=== PATIENT | male | born 1985 | race American Indian/Alaskan Native ===

== ENCOUNTER 2020-08-20 18:34 | Emergency (ER) | payer SELFPAY ==
--- NOTE | 2020-08-20 20:36 | Emergency Department Report ---
Blank Doc - Documentation Documentation: 34-year-old male that presents with anxiety and paranoid. Denies any SI/HI. This initial assessment/diagnostic orders/clinical plan/treatment(s) is/are subject to change based on patient's health status, clinical progression and re- assessment by fellow clinical providers in the ED. Further treatment and workup at subsequent clinical providers discretion. Patient/guardians urged not to elope from the ED as their condition may be serious if not clinically assessed and managed. Initial orders include: 1- Patient sent to MAIN ED for further evaluation and treatment 2- soft water mechanic was notified to have patient be brought back [facility]. 3- RN was notified to keep patient as close range and observation until room available
[2020-08-20 21:24] LABS: BUN/Creatinine Ratio 12; Blood Urea Nitrogen 11 mg/dL (9-20); Calcium 9.7 mg/dL (8.4-10.2); Hemolysis Index 9
[2020-08-20 21:31] LABS: Basophils % (Auto) 0.7 % (0.0-1.8); Eosinophils % (Auto) 0.6 % (0.0-4.3); Lymphocytes # (Auto) 0.9 K/mm3 (1.2-5.4); Lymphocytes % (Auto) 12.2 % (13.4-35.0); Mean Corpuscular HGB Conc 35 % (32-34); Mean Corpuscular Volume 98 fl (84-94); Monocytes # (Auto) 0.7 K/mm3 (0.0-0.8); Monocytes % (Auto) 9.5 % (0.0-7.3); Platelet Count 244 K/mm3 (140-440); Red Blood Count 4.39 M/mm3 (3.65-5.03); Red Cell Distribution Width 14.9 % (13.2-15.2)
[2020-08-20 21:58] LABS: Bilirubin,Urine NEG (Negative); Blood,Urine NEG (Negative); Color,Urine Yellow (Yellow); Mucus,Urine 1+ /HPF; Urobilinogen,Urine < 2.0 mg/dL (<2.0); WBC,Urine < 1.0 /HPF (0.0-6.0)
[2020-08-20 22:06] LABS: Amphetamine Screen,Urine PRESUMPTIVE POSITIVE; Benzodiazepines Screen,Urine PRESUMPTIVE NEGATIVE; Cannabinoid Screen,Urine PRESUMPTIVE POSITIVE; Cocaine Screen,Urine PRESUMPTIVE NEGATIVE; Methadone Screen,Urine PRESUMPTIVE NEGATIVE; Opiate Screen,Urine PRESUMPTIVE NEGATIVE
--- NOTE | 2020-08-21 02:40 | Emergency Department Report ---
<AMARJIT COEAlton - Last Filed: 08/21/20 22:33> ED Psych HPI - General Chief Complaint: Psych Stated Complaint: ANXIETY ATTACK Time Seen by Provider: 08/20/20 20:35 Source: patient Mode of arrival: Ambulatory - History of Present Illness Initial Comments: Patient is 34 years old male with no significant past medical history. No previous record to review. Patient presented to the ER stating that people are going after him to kill him. Patient denied any suicidal or homicidal ideation. No visual or auditory hallucination. Patient is very paranoid. MD Complaint: altered mental status Associated Psychiatric Symptoms: racing thoughts - Related Data Allergies Allergy/AdvReac Type Severity Reaction Status Date / Time No Known Allergies Allergy Unverified 08/20/20 20:53 ED Review of Systems Comment: All other systems reviewed and negative Constitutional: denies: chills, fever Respiratory: denies: cough, shortness of breath, SOB with exertion, wheezing Cardiovascular: denies: chest pain Gastrointestinal: denies: abdominal pain, nausea Musculoskeletal: denies: back pain Psychiatric: anxiety. denies: auditory hallucinations, visual hallucinations, h omicidal thoughts, suicidal thoughts ED Past Medical Hx - Past Medical History Previous Medical History?: Yes Additional medical history: hyperventilation - Surgical History Past Surgical History?: Yes Additional Surgical History: R arm - Social History Smoking Status: Current Some Day Smoker Substance Use Type: Alcohol ED Physical Exam - General Limitations: No Limitations General appearance: alert, in no apparent distress, anxious - Head Head exam: Present: atraumatic, normocephalic, normal inspection - Eye Eye exam: Present: normal appearance - ENT ENT exam: Present: normal exam, normal orophraynx, mucous membranes moist - Neck Neck exam: Present: normal inspection, full ROM. Absent: tenderness, meningismus, lymphadenopathy, thyromegaly - Respiratory Respiratory exam: Present: normal lung sounds bilaterally - Cardiovascular Cardiovascular Exam: Present: regular rate, normal rhythm, normal heart sounds - GI/Abdominal GI/Abdominal exam: Present: soft, normal bowel sounds. Absent: distended, tenderness, guarding, rebound, rigid, organomegaly, mass, bruit, pulsatile mass, hernia - Extremities Exam Extremities exam: Present: normal inspection, full ROM, normal capillary refill - Back Exam Back exam: Present: normal inspection, full ROM. Absent: CVA tenderness (R), CVA tenderness (L) - Neurological Exam Neurological exam: Present: alert, oriented X3, CN II-XII intact - Psychiatric Psychiatric exam: Present: normal mood - Skin Skin exam: Present: warm, intact, normal color ED Medical Decision Making - Lab Data Result diagrams: 08/20/20 20:52 08/20/20 20:52 ED Disposition Clinical Impression: Acute psychosis Condition: Stable Referrals: PRIMARY CARE, [Primary Care Provider] - 3-5 Days <BASIM ALVARENGA - Last Filed: 08/22/20 20:00> ED Review of Systems ROS: Stated complaint: ANXIETY ATTACK Other details as noted in HPI ED Course Vital Signs 08/20/20 08/21/20 08/21/20 20:52 02:11 08:30 Temperature 98.0 F 97.8 F 97.5 F L Pulse Rate 89 52 L 50 L Respiratory 20 16 19 Rate Blood Pressure Blood Pressure 148/95 106/80 106/73 [Right] O2 Sat by Pulse 100 100 99 Oximetry 08/21/20 08/21/20 08/22/20 17:41 19:48 02:33 Temperature 98.4 F 97.7 F Pulse Rate 76 51 L 53 L Respiratory 20 16 16 Rate Blood Pressure 111/75 110/73 Blood Pressure [Right] O2 Sat by Pulse 99 100 99 Oximetry 08/22/20 16:45 Temperature 98.0 F Pulse Rate 88 Respiratory Rate Blood Pressure Blood Pressure 118/79 [Right] O2 Sat by Pulse 99 Oximetry ED Medical Decision Making - Lab Data Result diagrams: 08/20/20 20:52 08/20/20 20:52 - Medical Decision Making I spoke with mental health surveillance operator. Due to acute psychosis patient requires involuntary hold. I have completed 1013 form after assessing the patient. Critical care attestation.: If time is entered above; I have spent that time in minutes in the direct care of this critically ill patient, excluding procedure time.
--- NOTE | 2020-08-22 09:44 | Consultation ---
History of Present Illness - Reason for Consult Consult date: 08/22/20 Reason for consult: paranoia - History of Present Psychiatric Illness Robert Urbina is a 34y/o male patient who presented to the ER for paranoia. During my interview with the patient this morning, he is a/o x 3. He is cooperative. The patient makes poor eye contact. He is initially barely speakin g. The patient says "I called the police because everything starting looking strange." He says "I literally started fearing for my life. Like I felt like I was going to ." The patient is looking behind his back as we are speaking. He says, "I don't feel safe out there." He then says, "It's like real, and this has happened to me three times." The patient says "but this was far worse." He says he's never sought psychiatric help before. He says "my sister and my dad have history of psych." He says "my moods be up and down." The patient denies any psych meds in the past. He also denies suicidal thoughts or any attempt in the past. He says, "I'm not the one to try and hurt myself. I feel like others are trying to do that." When asked about hallucinations, the patient says, "I don't think they are hallucinations but people in my head making me do things." He denies any illicit drug use, alcohol abuse or nicotine. When asked about his positive UDS, the patient still denies drug use. PAST PSYCHIATRIC HISTORY Diagnoses: Denies Suicide attempts or Self-harm behavior: Denies Prior psychiatric hospitalizations: Denies Substance Abuse history: Denies, but UDS positive for methamphetamines and THC Previous psychiatric medications tried: Denies Outpatient treatment: Denies PAST MEDICAL HISTORY: None reported Family Psychiatric History: None reported or documented SOCIAL HISTORY Marital Status: Single Living Arrangements: with cousin Employment Status: Employed Access to guns/weapons: Denies Education: 11 History of Abuse: Denies Legal History: Denies EVIEW OF SYSTEMS Constitutional: Negative for weight loss ENT: Negative for stridor Respiratory: Negative for cough or hemoptysis All other systems reviewed and are negative MENTAL STATUS EXAMINATION General Appearance and Behavior: Age appropriate, wearing appropriate clothes, poor eye contact, cooperative Mood: "scared" Affect and affective range: congruent with mood Thought Process: logical Thought Content: intrusive thoughts Speech: Normal volume, Regular rate and rhythm Suicidal Ideation: Denies Homicidal Ideation: Denies Hallucinations: denies Delusions: Paranoid Impulse Control: normal Insight and Judgment: Limited Memory/Cognition: Normal Attention: Normal Orientation: Alert, oriented Assessment (1) Bipolar Disorder (2) Methamphetamine Use Disorder (3) Substance Induced Mood Disorder Plan Start Seroquel 25mgpo BID Start Depakote DR 125mg po BID Start Trazodone 50mg po qhs Sitter: Defer to primary Medical: Per primary Disposition: Recommend acute inpatient treatment Will follow. Thank you for this consult. Medications and Allergies Allergies Allergy/AdvReac Type Severity Reaction Status Date / Time No Known Allergies Allergy Unverified 08/20/20 20:53 Mental Status Exam - Vital signs Last Vital Signs Temp 97.7 F 08/22/20 02:33 Pulse 53 L 08/22/20 02:33 Resp 16 08/22/20 02:33 BP 110/73 08/22/20 02:33 Pulse Ox 99 08/22/20 02:33 Results Result Diagrams: 08/20/20 20:52 08/20/20 20:52 All other labs normal.
[2020-08-22] MEDS: QUEtiapine 25 MG TAB PO SCH ×2 (11:17→21:39)
[2020-08-22] MEDS: DIVALPROEX DR 125 MG TAB PO SCH ×2 (11:17→21:40)
[2020-08-22] MEDS ORDERED: traZODone 50 MG TAB PO SCH (22:00)
[2020-08-23] MEDS: DIVALPROEX DR 125 MG TAB PO SCH (10:44)
[2020-08-23] MEDS: QUEtiapine 25 MG TAB PO SCH (10:45)
[2020-08-23 16:07] VITALS: BP 114/64
== END 2020-08-23 12:30 ==
LOC: ED 18:34
DX: F23 Brief psychotic disorder (principal); F17.200 Nicotine dependence, unspecified, uncomplicated; Z79.899 Other long term (current) drug therapy
CPT/HCPCS: 36415; 80048; 80307; 80320; 81001; 85025; G0480